=== PATIENT | male | born 1990 | race Caucasian/White ===

== ENCOUNTER 2018-12-09 04:39 | Emergency (ER) | payer OTHER ==
[2018-12-09 05:14] VITALS: TEMP 98.2; BMI 29.1
[2018-12-09] MEDS ORDERED: FAMOTIDINE 20 MG/50 ML IVPB 20 MG/50 ML MG IVPB ONE ×2 (05:25→05:38)
--- NOTE | 2018-12-09 05:27 | PDOC ---
History of Present Illness - General Chief Complaint: Allergic Reaction Stated Complaint: ALLERGIC REACTION Time Seen by Provider: 12/09/18 05:17 History Source: Patient, EMS, Old Records Exam Limitations: No Limitations - History of Present Illness Initial Comments: 12/09/18 05:22 HISTORY OF PRESENT ILLNESS: 28-year-old male with known shellfish ALLERGY who ate shrimp today. Patient reports is not ALLERGIC to all shrimp and occasionally has had no difficulties or issues while evening trip. Patient noted after eating began to experience little bit of itching in the back of his throat and was developing hives. He began to itch uncontrollably which caused him to call 911. Enroute to the emergency department patient received Decadron, epinephrine, Benadryl from EMS with resolution of symptoms. Patient is sleepy throughout exam but responds appropriately. No recent travel or sick contacts. PAST MEDICAL HISTORY: Denies past medical history SURGICAL HISTORY: Denies ALLERGIES: No known drug allergies. Shellfish. REVIEW OF SYSTEMS General/Constitutional: Denies fever or chills. Denies weakness, weight change. HEENT: Denies change in vision. Denies ear pain or discharge. Denies sore throat. Cardiovascular: Denies chest pain or shortness of breath. Respiratory: Denies cough, wheezing, or hemoptysis. Gastrointestinal: Denies nausea, vomiting, diarrhea or constipation. Denies rectal bleeding. Genitourinary: Denies dysuria, frequency, or change in urination. Musculoskeletal: Denies joint or muscle swelling or pain. Denies neck or back pain. Skin and breasts: Denies rash or easy bruising. Neurologic: Denies headache, vertigo, loss of consciousness, or loss of sensation. Psychiatric: Denies depression or anxiety. Endocrine: Denies increased thirst. Denies abnormal weight change. Hematologic/Lymphatic: Denies anemia, easy bleeding, or history of blood clots. Allergic/Immunologic: see HPI PHYSICAL EXAM General Appearance: Well-appearing, appropriately dressed. No apparent distress , no intoxication. HEENT: EOMI, PERRLA, normal ENT inspection, normal voice, TMs normal, pharynx normal. No conjunctival pallor. No photophobia, scleral icterus. Uvula midline. No sublingual edema present. No labial swelling present. Neck: Supple. Trachea midline. No tenderness, rigidity, carotid bruit, stridor , lymphadenopathy, or thyromegaly. Respiratory/Chest: Lungs CTAB. No shortness of breath, chest tenderness, respiratory distress, accessory muscle use. No crackles, rales, rhonchi, stridor , wheezing, dullness Cardiovascular: RRR. S1, S2. No JVD, murmur, bradycardia, tachycardia. Vascular Pulses: Dorsalis-Pedis (R): 2+, Dorsalis-Pedis (L): 2+ Gastrointestinal/Abdominal: Normal bowel sounds. Abdomen soft, non-distended. No tenderness or rebound tenderness. No organomegaly, pulsatile mass, guarding, hernia, hepatomegaly, splenomegaly. Lymphatic: No adenopathy, tenderness. Musculoskeletal/Extremities: Normal inspection. FROM of all extremities, normal capillary refill. Pelvis Stable. No CVA tenderness. No tenderness to extremities, pedal edema, swelling, erythema or deformity. Integumentary: Appropriate color, dry, warm. No cyanosis, erythema, jaundice or rash Neurologic: department store manager II-XII intact. Fully oriented, alert. Appropriate mood/affect. Motor strength 5/5. No appreciable EOM palsy, facial droop or sensory deficit. 12/09/18 05:25 Past History - Past Medical History Allergies/Adverse Reactions: Allergies Allergy/AdvReac Type Severity Reaction Status Date / Time No Known Allergies Allergy Verified 12/09/18 05:11 Home Medications: Ambulatory Orders predniSONE [Deltasone -] 40 mg PO DAILY #14 tablet 09/13/14 EPINEPHrine (EPI-PEN 0.3MG) [Epipen 0.3MG -] 0.3 mg IM ASDIR #2 pens 12/09/18 - Immunization History Immunization Up to Date: Yes - Suicide/Smoking/Psychosocial Hx Smoking History: Unknown if ever smoked Have you smoked in the past 12 months: No Number of Cigarettes Smoked Daily: 0 Cigars Per Day: 1 Information on smoking cessation initiated: No Hx Alcohol Use: No Drug/Substance Use Hx: No Substance Use Type: None *Physical Exam - Vital Signs Last Vital Signs Temp Pulse Resp BP Pulse Ox 98.2 F 71 20 142/58 L 100 12/09/18 05:12 12/09/18 05:12 12/09/18 05:12 12/09/18 05:12 12/09/18 05:12 Medical Decision Making - Medical Decision Making 12/09/18 05:26 A/P: 28-year-old male with ALLERGIC reaction to shellfish Uvula is midline without signs of edema Airways patent without evidence of stridor or drooling Lungs clear to auscultation bilaterally No hives or other skin eruptions present. Abdominal exam is within normal limits patient denies any nausea. Patient was given epinephrine, Decadron and Benadryl by EMS on the way to the hospital. I will add Pepcid 20 mg IV now. Normal saline 1 L bolus. Patient has received epinephrine I will monitor the patient for rebound symptoms. We'll have to sign out to oncoming shift. 12/09/18 05:27 12/09/18 06:49 Patient signed out to LISSETTE Diamond for continued observation. *DC/Admit/Observation/Transfer Diagnosis at time of Disposition: Allergic reaction Qualifiers: Encounter type: initial encounter Qualified Code(s): T78.40XA - Allergy, unspecified, initial encounter - Discharge Dispostion Condition at time of disposition: Improved - Prescriptions Prescriptions: EPINEPHrine (EPI-PEN 0.3MG) [Epipen 0.3MG -] 0.3 mg IM ASDIR #2 pens - Referrals - Patient Instructions - Post Discharge Activity
[2018-12-09 06:29] VITALS: BP 111/51; PULSE 64
--- NOTE | 2018-12-09 07:04 | PDOC ---
*Physical Exam - Vital Signs Last Vital Signs Temp Pulse Resp BP Pulse Ox 98.2 F 64 18 111/51 L 100 12/09/18 05:12 12/09/18 06:28 12/09/18 06:28 12/09/18 06:28 12/09/18 06:28 ED Treatment Course - Medications Given in the ED: ED Medications Discontinued Medications Generic Name Dose Route Start Last Admin Trade Name Freq PRN Reason Stop Dose Admin Famotidine/Sodium Chloride 20 mg in 50 mls @ 100 mls/hr 12/09/18 05:25 05:38 Pepcid 20 Mg Premixed Ivpb - IVPB 12/09/18 05:54 100 mls/hr ONCE ONE Administration Medical Decision Making - Medical Decision Making Patient signed out to me by BRIEF WRITER Andrew Petersen Patient had received epinephrine around 4:30 AM Patient currently sleeping, in NAD Will continue to monitor 12/09/18 07:03 Patient reassessed and feeling better Denies any complaints Stable for dc 12/09/18 08:50 *DC/Admit/Observation/Transfer Diagnosis at time of Disposition: Allergic reaction Qualifiers: Encounter type: initial encounter Qualified Code(s): T78.40XA - Allergy, unspecified, initial encounter - Discharge Dispostion Condition at time of disposition: Improved Decision to Admit order: No - Prescriptions Prescriptions: EPINEPHrine (EPI-PEN 0.3MG) [Epipen 0.3MG -] 0.3 mg IM ASDIR #2 pens - Referrals - Patient Instructions Printed Discharge Instructions: DI for General Allergic Reactions Additional Instructions: Thank you for choosing [facility]. It was a pleasure taking care of you. You were treated for allergic reaction after taking shrimp Please avoid shrimp and other foods that may trigger an allergic reaction Follow-up with your doctor in 2-3 days Return to the Emergency Department if your symptoms worsen or persist, have shortness of breath, throat closing sensation, break out into hives again or have other concerning symptoms. - Post Discharge Activity
== END 2018-12-09 08:56 | disposition home or self-care (01) ==
LOC: JER 04:39
PROC: 3E033GC Introduction of Other Therapeutic Substance into Peripheral Vein, Percutaneous Approach (ICD-10-PCS; principal; 2018-12-09)
DX: T78.1XXA Other adverse food reactions, not elsewhere classified, initial encounter (principal); L50.0 Allergic urticaria
CPT/HCPCS: 96365; 99283-25

== ENCOUNTER 2020-02-25 15:21 | Emergency (ER) | payer OTHER ==
[2020-02-25 15:25] VITALS: BP 127/78; PULSE 67; TEMP 98.1; BMI 28.3
--- NOTE | 2020-02-25 15:42 | PDOC ---
History of Present Illness - General Chief Complaint: Rash Stated Complaint: RT FOOT PAIN Time Seen by Provider: 02/25/20 15:27 - History of Present Illness Initial Comments: 02/25/20 15:40 29-year-old male without comorbidities presents for bilateral foot pain x1 week Past History - Medical History Allergies/Adverse Reactions: Allergies Allergy/AdvReac Type Severity Reaction Status Date / Time No Known Allergies Allergy Verified 02/25/20 15:22 Home Medications: Ambulatory Orders predniSONE [Deltasone -] 40 mg PO DAILY #14 tablet 09/13/14 EPINEPHrine (EPI-PEN 0.3MG) [Epipen 0.3MG -] 0.3 mg IM ASDIR #2 pens 12/09/18 Tolnaftate 1% Cream [Tinactin 1% Cream -] 1 applic TP BID #1 tube 02/25/20 COPD: No - Immunization History Immunization Up to Date: Yes - Psycho-Social/Smoking History Smoking History: Never smoked Have you smoked in the past 12 months: No Number of Cigarettes Smoked Daily: 0 Cigars Per Day: 1 - Substance Abuse Hx (Audit-C & DAST Scrn) How often the patient has a drink containing alcohol: 2-4 times / month Number of drinks the patient has on a typical day: 3 or 4 How often the patient has six or more drinks on one occasion: Never Score: In Men: 4 or > Positive; In Women: 3 or > Positive: 3 Screen Result (Pos requires Nsg. Audit-10AR): Negative In the last yr the pt used illegal drug/Rx for NonMed reason: No Score: Yes response is considered Positive: 0 Screen Result (Positive result requires Nsg. DAST-10): Negative Review of Systems - Review of Systems Constitutional: No: Fever Integumentary: Yes: Pruritus, Rash *Physical Exam - Vital Signs Last Vital Signs Temp Pulse Resp BP Pulse Ox 98.1 F 67 18 127/78 100 02/25/20 15:23 02/25/20 15:23 02/25/20 15:23 02/25/20 15:23 02/25/20 15:23 - Physical Exam 02/25/20 15:41 Scaling and moistness in between the toes of bilateral feet superficial excoriations without indication of secondary infection otherwise normal skin color temperature without gross sensorimotor deficits Medical Decision Making - Medical Decision Making 02/25/20 15:41 Antifungal for tinea pedis follow-up with podiatry 02/25/20 15:41 I have reviewed the pathophysiology with the patient. They are in agreement with the treatment plan all questions were answered to their satisfaction. Understanding for follow-up without fail was also conveyed to the patient. Again they are in agreement. Discharge - Discharge Information Problems reviewed: Yes Clinical Impression/Diagnosis: Tinea pedis Condition: Stable Disposition: HOME - Admission No - Additional Discharge Information Prescriptions: Tolnaftate 1% Cream [Tinactin 1% Cream -] 1 applic TP BID #1 tube - Follow up/Referral Referrals: Juan F Mcguire MD [Non Staff, Medical] - - Patient Discharge Instructions Additional Instructions: Please use the topical medication as directed change her socks twice a day and return to the emergency room should symptoms worsen. Without fail follow-up with podiatry in 2 to 3 days for further evaluation and treatment options. - Post Discharge Activity
== END 2020-02-25 15:43 | disposition home or self-care (01) ==
LOC: JERFT 15:21
DX: B35.3 Tinea pedis (principal)
CPT/HCPCS: 99282-25

== ENCOUNTER → 2020-08-20 | Emergency (ER) | payer OTHER ==
[2020-08-20 19:55] VITALS: BP 126/70; PULSE 78; TEMP 97.7; BMI 27.4
== END | disposition home or self-care (01) ==
LOC: JERFT 19:48 → JER 19:48
DX: M54.5 Low back pain (principal)
CPT/HCPCS: 99282-25

== ENCOUNTER 2022-01-15 14:21 | Emergency (ER) | payer OTHER ==
[2022-01-15 14:46] VITALS: BP 105/62; PULSE 73; RESP 18; TEMP 98; BMI 26.6
[2022-01-15] MEDS ORDERED: KETOROLAC TROMETHAMINE 30 MG/1 ML VIAL IM ONE (15:27)
[2022-01-15] MEDS ORDERED: KETOROLAC TROMETHAMINE 30 MG/1 ML VIAL ONE (15:31)
== END 2022-01-15 18:10 | disposition home or self-care (01) ==
LOC: JER 14:21 → JERFT 14:21
PROC: 3E0233Z Introduction of Anti-inflammatory into Muscle, Percutaneous Approach (ICD-10-PCS; principal; 2022-01-15)
DX: M54.50 Low back pain, unspecified (principal)
CPT/HCPCS: 99284-25

== ENCOUNTER 2023-11-05 05:05 | Emergency (ER) | payer OTHER ==
[2023-11-05 05:15] VITALS: RESP 18; TEMP 97.3; BMI 28.1
[2023-11-05] MEDS ORDERED: KETOROLAC TROMETHAMINE 15 MG/ML VIAL ONE (05:40)
[2023-11-05] MEDS: KETOROLAC TROMETHAMINE 15 MG/ML VIAL IVPUSH ONE (05:54)
[2023-11-05] MEDS ORDERED: ONDANSETRON 4 MG/2 ML VIAL ONE (05:59)
[2023-11-05] MEDS ORDERED: morphine SULFATE 4 MG/ML VIAL ONE (05:59)
[2023-11-05] MEDS: morphine CARPU-JECT 2 MG/1 ML DISP.SYRIN IVPUSH ONE (06:05)
[2023-11-05] MEDS: SODIUM CHLORIDE 0.9% 500 ML INFUS.BAG IV ONE (06:06)
[2023-11-05] MEDS: ONDANSETRON 4 MG/2 ML VIAL IVPUSH ONE (06:06)
[2023-11-05 07:05] LABS: BASO % 0.6 % (0-2.0); EOS % 3.5 % (0-4.5); HEMATOCRIT 46.1 % (35.4-49); HEMOGLOBIN 15.8 GM/dL (11.7-16.9); LYMPH % 16.5 % (8-40); MCH 29.4 pg (25.7-33.7); MCHC 34.2 g/dl (32.0-35.9); MEAN PLT VOLUME 8.5 fl (7.5-11.1); NEUT % 73.4 % (42.8-82.8); PLATELET COUNT 301 10^3/uL (134-434); RBC 5.36 M/mm3 (4.00-5.60); RDW 12.2 % (11.9-15.9)
[2023-11-05 07:09] LABS: EPI CELLS 10 /uL (0-25.1); HYALINE CASTS 1 /uL (0-3.1); PH,URINE 7.5 (5.0-8.0); URINE APPEARANCE CLOUDY; URINE BACTERIA 7 /uL (0-1359); URINE BILIRUBIN NEGATIVE (NEGATIVE); URINE COLOR YELLOW; URINE GLUCOSE (UA) NEGATIVE (NEGATIVE); URINE KETONE TRACE (NEGATIVE); URINE LEUK ESTERASE TRACE (NEGATIVE); URINE NITRITE NEGATIVE (NEGATIVE); URINE PROTEIN 1+ (NEGATIVE); URINE RBC 197 /uL (0-23.9); URINE WBC 28 /uL (0-25.8)
[2023-11-05 07:09] LABS: INR 1.14 (0.83-1.09); PROTHROMBIN TIME (PATIENT) 12.8 SEC (9.7-13.0)
[2023-11-05 07:11] LABS: ACTIVATED PTT 31.9 SECONDS (25.2-36.5)
[2023-11-05 07:15] LABS: CALCIUM 9.7 mg/dL (8.5-10.1)
[2023-11-05 07:16] LABS: ALBUMIN 3.9 g/dl (3.4-5.0); BLOOD UREA NITROGEN 15.4 mg/dL (7-18); MAGNESIUM 2.2 mg/dL (1.8-2.4)
[2023-11-05 07:19] LABS: CREATININE 1.2 mg/dL (0.55-1.3)
[2023-11-05 07:21] LABS: BILIRUBIN,TOTAL 0.6 mg/dL (0.2-1)
[2023-11-05] MEDS ORDERED: ACETAMINOPHEN INJECTION 100 ML IVPB ONE (09:32)
[2023-11-05] MEDS: ACETAMINOPHEN 1000 MG/100 ML BAG IVPB ONE (09:41)
[2023-11-05] MEDS ORDERED: cefTRIAXone SODIUM 1 GM VIAL ONE (10:57)
[2023-11-05] MEDS ORDERED: DOXYCYCLINE HYCLATE 100 MG CAPSULE PO ONE (10:58)
[2023-11-05] MEDS: DOXYCYCLINE HYCLATE 100 MG CAPSULE PO ONE (11:13)
[2023-11-05 12:29] VITALS: BP 140/85; PULSE 64
== END 2023-11-05 12:25 | disposition home or self-care (01) ==
LOC: JER 05:05
PROC: 3E030NZ Introduction of Analgesics, Hypnotics, Sedatives into Peripheral Vein, Open Approach (ICD-10-PCS; principal; 2023-11-05)
PROC: 3E0303Z Introduction of Anti-inflammatory into Peripheral Vein, Open Approach (ICD-10-PCS; 2023-11-05)
PROC: 3E030GC Introduction of Other Therapeutic Substance into Peripheral Vein, Open Approach (ICD-10-PCS; 2023-11-05)
PROC: 3E030GC Introduction of Other Therapeutic Substance into Peripheral Vein, Open Approach (ICD-10-PCS; 2023-11-05)
PROC: 3E02329 Introduction of Other Anti-infective into Muscle, Percutaneous Approach (ICD-10-PCS; 2023-11-05)
DX: R10.84 Generalized abdominal pain (principal); R35.0 Frequency of micturition
CPT/HCPCS: 36415; 74177-TC; 80053; 81003; 83735; 85025; 85610; 85730; 86850; 86900; 86901; 87086; 99285-25; J0131; Q9967

== ENCOUNTER 2023-12-25 09:36 | Emergency (ER) | payer BC ==
[2023-12-25 09:51] VITALS: BP 122/76; PULSE 72; RESP 20; TEMP 98.6; BMI 28.2
[2023-12-25 13:04] LABS: BASO % 0.5 % (0-2.0); EOS % 3.3 % (0-4.5); HEMOGLOBIN 14.8 GM/dL (11.7-16.9); LYMPH % 16.1 % (8-40); MCH 29.9 pg (25.7-33.7); MCHC 34.4 g/dl (32.0-35.9); MEAN CELL VOLUME 87.1 fl (80-96); MEAN PLT VOLUME 8.7 fl (7.5-11.1); MONO % 10.7 % (3.8-10.2); NEUT % 69.4 % (42.8-82.8); PLATELET COUNT 289 10^3/uL (134-434); RBC 4.94 M/mm3 (4.00-5.60); RDW 13.3 % (11.9-15.9); WHITE BLOOD COUNT 9.7 K/mm3 (4.0-10.0)
[2023-12-25] MEDS: LACTATED RINGERS SOLUTION 1000 ML INFUS.BAG IV ONE (13:09)
[2023-12-25] MEDS: BISMUTH SUBSALICYLATE 524 MG/30 ML PO ONE (13:13)
[2023-12-25 13:20] LABS: POTASSIUM 4.2 mmol/L (3.5-5.1)
[2023-12-25 13:22] LABS: ALBUMIN 3.4 g/dl (3.4-5.0); CALCIUM 9.5 mg/dL (8.5-10.1)
[2023-12-25 13:23] LABS: BLOOD UREA NITROGEN 8.7 mg/dL (7-18)
[2023-12-25 13:25] LABS: CREATININE 0.9 mg/dL (0.55-1.3)
[2023-12-25 13:27] LABS: BILIRUBIN,TOTAL 0.4 mg/dL (0.2-1); TOT PROT 7.8 g/dl (6.4-8.2)
== END 2023-12-25 13:54 | disposition home or self-care (01) ==
LOC: JER 09:36
DX: R19.7 Diarrhea, unspecified (principal); R10.9 Unspecified abdominal pain
CPT/HCPCS: 36415; 80053; 85025; 87045; 87046; 87186; 99283-25